=== PATIENT | male | born 1945 | race Caucasian/White ===

== ENCOUNTER → 2017-04-18 | Outpatient (CLI) | payer OTHER ==
[~2017-04-18] MED LIST: LISINOPRIL40 MG PO; LO-DOSE ASPIRIN81 M1 PO; PRAVACHOL20 MG PO; PROBIOTIC1 EAC1 PO; PROTONIX40 MG PO; SLEEP AID50 MG PO
== END | disposition home or self-care (01) ==
LOC: RAD 08:39
DX: I70.8 Atherosclerosis of other arteries (principal)
CPT/HCPCS: 93880